=== PATIENT | male | born 1980 | race American Indian/Alaskan Native ===

== ENCOUNTER 2018-05-02 06:32 | Emergency (ER) | payer BC ==
[2018-05-02 07:23] VITALS: O2SAT 98
--- NOTE | 2018-05-02 07:45 | C.PDOC ---
History Of Present Illness 37 years old male presents to ED for complaints of left mid back/ chest pain that began 2-3 days ago. Patient describes initial onset of left mid back is constant but relieves with motrin. He also states chest pain was new onset of t he left mid/ parasternal chest. He characterizes pain as sharp and pleuritic. Denies fever, cough, Hx of asthma, or any other complaints. Patient states he recently had viral GI illness. Patient also reports he is a smoker. L MID BACK/CHEST X 2-3 DAYS. INITIAL ONSET L MID BACK, CONSTANT BUT RELIEVES W MOTRIN. NEW ONSET LOCATION L MID/PARASTERNAL CHEST. SHARP, +PLEURITIC. NO FEVER, COUGH. RECENT VIRAL GI ILLNESS. +SMOKER NO ASTHMA EXAM NARD NONTOXIC LUNGS CTA B/L NO W/R/R REPRODUCIBLE PAIN NO CHEST WALL TEND ABD NEG REMAINDER NEG Time Seen by Provider: 05/02/18 07:18 Chief Complaint (Nursing): Chest Pain History Per: Patient History/Exam Limitations: no limitations Onset/Duration Of Symptoms: Hrs Current Symptoms Are (Timing): Still Present Quality: Sharp Modifying Factors: None Exacerbating Factors: None Alleviating Factors: None Recent travel outside of the [place]: No Past Medical History Reviewed: Historical Data, Nursing Documentation, Vital Signs Vital Signs: Last Vital Signs Temp 99.2 F 05/02/18 06:34 Pulse 71 05/02/18 07:10 Resp 16 05/02/18 07:10 BP 131/73 05/02/18 07:10 Pulse Ox 98 05/02/18 07:10 - Medical History PMH: No Chronic Diseases Surgical History: No Surg Hx Family History: States: No Known Family Hx - Social History Hx Alcohol Use: Yes Hx Substance Use: No - Immunization History Hx Tetanus Toxoid Vaccination: No Hx Influenza Vaccination: No Hx Pneumococcal Vaccination: No Review Of Systems Constitutional: Negative for: Fever, Chills Cardiovascular: Positive for: Chest Pain (Left MID/PARASTERNAL ) Gastrointestinal: Negative for: Nausea, Vomiting, Diarrhea Musculoskeletal: Positive for: Back Pain (Left mid back ) Skin: Negative for: Rash Neurological: Negative for: Weakness, Numbness Physical Exam - Physical Exam Appears: Non-toxic, No Acute Distress Skin: Normal Color, Warm, Dry, No Rash Head: Atraumatic, Normacephalic Eye(s): bilateral: Normal Inspection, PERRL, EOMI Oral Mucosa: Moist Neck: Normal ROM, Supple Chest: Symmetrical, No Tenderness, Other (REPRODUCIBLE PAIN) Respiratory: Normal Breath Sounds (Clear to auscultation bilaterally ), No Rales, No Rhonchi, No Wheezing, Other (NARD) Gastrointestinal/Abdominal: Normal Exam, Bowel Sounds (Active), Soft, No Tend erness, No Guarding, No Rebound Extremity: Normal ROM Extremity: Bilateral: Atraumatic, Normal Color And Temperature, Normal ROM Pulses: Left Radial: Normal, Right Radial: Normal Neurological/Psych: Oriented x3, Normal Speech Gait: Steady ED Course And Treatment - Laboratory Results Result Diagrams: 05/02/18 08:16 05/02/18 08:16 ECG: Interpreted By Me ECG Rhythm: Sinus Rhythm ECG Interpretation: Normal Rate From EC O2 Sat by Pulse Oximetry: 98 (RA) Pulse Ox Interpretation: Normal - Radiology CXR: Interpreted by Me CXR Interpretation: Yes: No Acute Disease - Other Rad CXR X-Ray: Viewed By Me, Read By Radiologist Interpretation: Date of service: 05/02/2018. HISTORY: CP. COMPARISON: No prior. TECHNIQUE: Chest PA and lateral. FINDINGS: LUNGS: No active pulmonary disease. PLEURA: No significant pleural effusion identified. No pneumothorax apparent. CARDIOVASCULAR: No aortic atherosclerotic calcification present. Normal cardiac size. No pulmonary vascular congestion. OSSEOUS STRUC TURES: No significant abnormalities. VISUALIZED UPPER ABDOMEN: Normal. OTHER FINDINGS: None. IMPRESSION: No active disease. Reevaluation Time: 09:33 Reassessment Condition: Improved (PT NOW STATES DID HEAVY LIFTING BEFORE ONSET OF PAIN.) Medical Decision Making Medical Decision Making: Plan: * Toradol * Blood work * CXR Disposition Counseled Patient/Family Regarding: Studies Performed, Diagnosis, Need For Followup, Rx Given - Disposition Referrals: YOUR,PMD [Other] Disposition: HOME/ ROUTINE Disposition Time: 09:33 Condition: IMPROVED Prescriptions: Ibuprofen [Motrin] 600 mg PO Q6 #30 tab Instructions: Chest Pain That Is Not Caused by the Heart (DC) Forms: [employer] (Lithuanian), Work Excuse - Clinical Impression Clinical Impression: Chest wall muscle strain
[2018-05-02 08:26] LABS: BASO # 0.1 K/uL (0.0-0.2); BASO % 0.7 % (0.0-2.0); EOS % 0.3 % (0.0-4.0); HEMOGLOBIN 15.2 g/dL (12.0-18.0); LYMPH # 1.4 K/uL (1.0-4.3); LYMPH % 9.8 % (20.0-40.0); MEAN CELL VOLUME 96.2 fL (80.0-94.0); MEAN CORPUSCULAR HEMOGLOBIN 32.5 pg (27.0-31.0); MEAN CORPUSCULAR HGB CONC 33.8 g/dL (33.0-37.0); MEAN PLATELET VOLUME 9.9 fL (7.2-11.7); MONO # 1.2 K/uL (0.0-0.8); MONO % 8.5 % (0.0-10.0); NEUT # 11.3 K/uL (1.8-7.0); NEUT % 80.7 % (50.0-75.0); PLATELET COUNT 166 K/uL (130-400); RBC 4.68 Mil/uL (4.40-5.90); RED CELL DISTRIBUTION WIDTH 13.9 % (11.5-14.5)
--- NOTE | 2018-05-02 08:38 | RAD ---
Date of service: 05/02/2018 HISTORY: CP COMPARISON: No prior. TECHNIQUE: Chest PA and lateral FINDINGS: LUNGS: No active pulmonary disease. PLEURA: No significant pleural effusion identified. No pneumothorax apparent. CARDIOVASCULAR: No aortic atherosclerotic calcification present. Normal cardiac size. No pulmonary vascular congestion. OSSEOUS STRUCTURES: No significant abnormalities. VISUALIZED UPPER ABDOMEN: Normal. OTHER FINDINGS: None. IMPRESSION: No active disease.
[2018-05-02 08:41] LABS: ALB/GLOB RATIO 1.4 (1.0-2.1); ALBUMIN 4.1 g/dL (3.5-5.0); ALT/SGPT 30 U/L (21-72); AST/SGOT 21 U/L (17-59); BLOOD UREA NITROGEN 12 mg/dL (9-20); CALCIUM 8.7 mg/dl (8.6-10.4); GFR NON-AFRICAN AMERICAN > 60
[2018-05-02 09:10] VITALS: BP 120/74; PULSE 72; RESP 17; TEMP 99
[2018-05-02 09:33] LABS: LYMPHOCYTE 4 % (20-40); MONOCYTE 12 % (0-10); NEUTROPHIL 84 % (50-75); PLATELET ESTIMATE NORMAL (NORMAL); TOTAL CELLS COUNTED 100
[2018-05-02 09:34] LABS: LARGE PLATELETS PRESENT
--- NOTE | 2018-05-03 19:20 | CARD ---
APPROVED REPORT Date of service: 05/02/2018 EKG Measurement Heart [id number] <Conclusion> Normal sinus rhythm Possible Left atrial enlargement Borderline ECG
== END 2018-05-02 09:57 | disposition home or self-care (01) ==
LOC: C.ER 06:32
DX: S29.011A Strain of muscle and tendon of front wall of thorax, initial encounter (principal); X58.XXXA Exposure to other specified factors, initial encounter
CPT/HCPCS: 71046; 80053; 84484; 85025; 85378; 93005; 96374; 99285; J1885